=== PATIENT | female | born 1995 | race Caucasian/White ===

== ENCOUNTER → 2025-03-15 | Outpatient (CLI) | payer OTHER ==
--- NOTE | 2025-03-15 16:11 | HMCIMG ---
MR SHOULDER LEFT WO HISTORY: Pain COMPARISON: None TECHNIQUE: MRI of the left shoulder was performed utilizing multiple pulse sequences in axial, coronal and sagittal planes. Patient was not given contrast through intravenous route. FINDINGS: No abnormal signal intensity is seen of the visualized bony structure. Hypertrophic degenerative changes are seen of the acromioclavicular joint. There is downward sloping of acromion in a medial to lateral direction encroaching upon the rotator cuff tendon and muscles. There is rotator cuff tendinosis. The glenoid labrum is intact. Bicipital tendon is seen within its groove. No appreciable amount of joint effusion is seen. No fluid is seen in the subacromial-subdeltoid bursal complex. IMPRESSION: 1. There is minimal rotator cuff tendinosis.
== END | disposition home or self-care (01) ==
LOC: RAH 12:54
PROVIDERS: ATTEND Student in an Organized Health Care Education/Training Program
DX: M19.012 Primary osteoarthritis, left shoulder (principal); M75.42 Impingement syndrome of left shoulder
CPT/HCPCS: 73221